=== PATIENT | female | born 1965 | race Hispanic/Latino ===

== ENCOUNTER 2023-07-04 15:14 | Emergency (ER) | payer OTHER ==
[~2023-07-04] VITALS: Ht 162.6 cm; Wt 93.0 kg
[2023-07-04 16:22] VITALS: BP 156/75; PULSE 69; RESP 20
[2023-07-04 17:18] LABS: BASOPHILS # (AUTO) 0.04 K/uL (0.00-0.20); BASOPHILS % (AUTO) 0.6 % (0.0-5.0); EOSINOPHILS # (AUTO) 0.33 K/uL (0.00-0.70); EOSINOPHILS % (AUTO) 5.3 % (0.0-8.0); HEMATOCRIT 38.9 % (36-48); IMMATURE GRANULOCYTE ABSOLUTE 0.01 K/uL (0-1); LYMPHOCYTES # (AUTO) 1.6 K/uL (1.0-4.8); LYMPHOCYTES % (AUTO) 25.7 % (21.0-51.0); MEAN CORPUSCULAR HEMOGLOBIN 31.4 pg (27.0-33.0); MEAN CORPUSCULAR HGB CONC 33.9 g/dL (32.0-36.0); MEAN CORPUSCULAR VOLUME 92.4 fL (79-99); MONOCYTES # (AUTO) 0.4 K/uL (0.1-1.0); MONOCYTES % (AUTO) 6.4 % (3.0-13.0); NEUTROPHILS # (AUTO) 3.8 K/uL (1.8-7.7); NEUTROPHILS % (AUTO) 61.8 % (40.0-77.0); PLATELET COUNT (AUTO) 421 K/uL (130-400); RED BLOOD CELL COUNT(AUTO) 4.21 MIL/uL (4.00-5.50); RED CELL DISTRIBUTION WIDTH 13.5 % (11.0-15.5); WHITE BLOOD COUNT (AUTO) 6.2 K/uL (4.8-10.8)
[2023-07-04 17:19] LABS: RAPID GROUP A STREP negative (NEGATIVE)
[2023-07-04 17:27] LABS: CREATININE 0.8 mg/dL (0.5-1.0)
[2023-07-04 17:27] LABS: INFLUENZA TYPE A Negative For Type A (NEGATIVE); INFLUENZA TYPE B Negative For Type B (NEGATIVE)
[2023-07-04 17:28] LABS: COVID19 (SARS ANTIGEN RAPID) PRESUMPTIVE NEGATIVE (NEGATIVE)
[2023-07-04 17:32] LABS: ALBUMIN 3.7 g/dL (3.5-5.0); BILIRUBIN,TOTAL 0.4 mg/dL (0.2-1.0); TOTAL PROTEIN, SERUM 7.7 g/dL (6.0-8.3)
[2023-07-04 17:33] LABS: APPEARANCE,URINE CLEAR (CLEAR); BILIRUBIN,URINE NEGATIVE (NEGATIVE); COLOR,URINE LIGHT-YELLOW (YELLOW); GLUCOSE, URINE (UA) NEGATIVE (NEGATIVE); KETONES,URINE NEGATIVE (NEGATIVE); LEUKOCYTE ESTERASE ,URINE 25 Leu/uL (NEGATIVE); NITRATE,URINE NEGATIVE (NEGATIVE); OCCULT BLOOD,URINE NEGATIVE (NEGATIVE); PH,URINE 5.5 (5.0-8.0); PROTEIN,URINE NEGATIVE (NEGATIVE)
[2023-07-04 17:37] LABS: ADD UA MICROSCOPIC YES
[2023-07-04 17:38] LABS: SQUAMOUS EPITHELIAL CELL,UR RARE /HPF (0-2)
[2023-07-04] MEDS: PREDNISONE 20 MG TABLET PO ONE (18:17)
[2023-07-04] MEDS ORDERED: PRED20TA3 PO ×2 (19:31→19:45)
[2023-07-04] MEDS ORDERED: CEFD300C3 PO (19:31)
[2023-07-04] MEDS ORDERED: IBUP-2070 PO (19:45)
[2023-07-04] MEDS: CEFTRIAXONE 1G VIAL IVPB ONE (20:07)
== END 2023-07-04 20:46 | disposition home or self-care (01) ==
LOC: EDH 15:14
DX: N39.0 Urinary tract infection, site not specified (principal); J02.9 Acute pharyngitis, unspecified; Z20.822 Contact with and (suspected) exposure to COVID-19; Z98.890 Other specified postprocedural states
CPT/HCPCS: 99284; 96374; 87426; 80053; 84703; 85025; 87880; 87804 ×2; 81001; 36415; 70360; J0696